=== PATIENT | male | born 1970 | race Caucasian/White ===

== ENCOUNTER 2019-08-10 16:49 | Emergency (ER) | payer BC ==
[2019-08-10] MEDS ORDERED: predniSONE 10 MG Tab ONE (16:50)
[2019-08-10] MEDS ORDERED: methylPREDNISolone Sodium Succinate 125 MG/2 ML SDV IVPUSH ONE (17:08)
--- NOTE | 2019-08-10 19:09 | ER ---
REASON FOR EMERGENCY ROOM VISIT: Multiple wasp stings. HISTORY: This 49-year-old man came in to the emergency room after having sustained what he feels were multiple stings either from bees or wasps when he was removing a tarp from his boat. This occurred approximately 40 minutes before his arrival in the emergency department. He was removing a tarp and apparently there was a round "nest" beneath the tarp and swarm of insects attacked him. He states he was stung multiple times primarily his right arm. His upper abdomen and possibly his right cheek area. He knows that he had a history of what sounds like an intense local reaction to a bee sting many years ago, but he has never had an actual anaphylactic reaction. He promptly took 2 tablets of Benadryl (unknown dose) and 1 Claritin tablet and then was brought into the emergency department by his . He states that he did feel some tightness around the right side of his cheek and neck area on the outside, but no difficulty swallowing and no air hunger or shortness of breath. He thinks he may well have been stung in the right cheek. He also states that he had a sensation that the tip of his tongue was "cool" but no swelling. He denied any generalized itching and he did not develop any urticaria. He denied any shortness of breath or wheezing. He did get somewhat anxious and did not develop any GI symptoms. PAST MEDICAL HISTORY: Otherwise unremarkable. REVIEW OF SYSTEMS: Pertinent positives and negatives as listed in the HPI. MEDICATIONS: None. ALLERGIES: NONE TO MEDICATIONS. PHYSICAL EXAMINATION: GENERAL: He is a pleasant, alert alverto who is slightly anxious. VITAL SIGNS: His blood pressure was elevated at 162/108 when he arrived, but his heart rate was 76. His respiratory rate 18. His O2 sats 98%. He is afebrile. HEENT: Head is normocephalic. He has slight puffiness over his right cheek compared to the left side, but I cannot identify an area where he was clearly stung. This seems to be just a slight generalized swelling in the area most likely representing sting. His oropharynx is normal. NECK: His trachea is midline. No JVD. CHEST: Clear to auscultation with good air exchange and no wheezes, rhonchi, or rales. CARDIAC: Regular rate without murmur. ABDOMEN: Soft. SKIN: He has an area of redness measuring approximately 4 cm, his right volar forearm and his right anterior biceps area. He also has a small raised area with some mild erythema in the epigastrium consistent with an insect bite. There is not a pronounced local reaction. I did look with magnification for any stingers and could not identify any. IMPRESSION: Multiple Hymenoptera stings, most likely wasps. FURTHER EMERGENCY ROOM COURSE: Because of the number of stings and his history of what sounds like a severe local reaction, I went ahead and gave him Solu-Medrol 125 mg IV. He already took Benadryl, so we did not have to repeat that. Gel packs were given to him to apply over his stings in his right arm. PLAN: We will observe him for another hour here in the emergency room. A long discussion was undertaken regarding the difference between localized reaction and anaphylaxis. I do not feel that he is experiencing any symptoms of anaphylaxis at this time. His blood pressure in fact is elevated, which is a reflection probably of anxiety, but I did urge him to keep an eye on this and have it rechecked. I also explained that it is perfectly understandable for him to have an elevated blood pressure under these circumstances. We did discuss the advisability of an EpiPen and I told him that I thought it was a good idea and offered him a prescription for 1 which he accepted. He was given prednisone 10 mg, dispensed #15 and instructed to take 40 mg p.o. daily at least tomorrow and Monday (2 days). Symptoms and signs of anaphylaxis were discussed with him as well as signs of secondary infection which can occur, albeit rarely. He understands and agrees and had no further questions. I also had this discussion with his who was waiting for him out in the parking lot. JIMI/REYMUNDO /[id number]
== END 2019-08-10 18:25 | disposition home or self-care (01) ==
LOC: LB.ED 16:49
DX: T63.481A Toxic effect of venom of other arthropod, accidental (unintentional), initial encounter (principal)
CPT/HCPCS: 96374; 99282; 99283; J2930; J7512